=== PATIENT | male | born 1955 | race Hispanic/Latino ===

== ENCOUNTER → 2018-01-15 | Outpatient (CLI) | payer OTHER ==
[~2018-01-15] MED LIST: REGADENOSON 0.4 MG/5 ML PF SYG IVP SCH
== END | disposition home or self-care (01) ==
LOC: SHCH 09:32
PROVIDERS: ATTEND Internal Medicine Cardiovascular Disease
DX: Z01.810 Encounter for preprocedural cardiovascular examination (principal)
CPT/HCPCS: 78452; 93017; 96374; A9500 ×2; J2785

== ENCOUNTER 2018-02-14 06:39 | Observation (INO) | payer OTHER ==
[2018-02-08 11:26] VITALS: BP 152/59
[2018-02-08 11:30] LABS: BASOPHILS % (AUTO) 1.2 % (0.0-5.0); EOSINOPHILS % (AUTO) 7.3 % (0.0-8.0); HEMATOCRIT 35.9 % (42-54); MEAN CORPUSCULAR HEMOGLOBIN 31.5 pg (27.0-33.0); MEAN CORPUSCULAR HGB CONC 34.1 g/dL (32.0-36.0); MEAN CORPUSCULAR VOLUME 92.3 fL (79-99); MONOCYTES % (AUTO) 7.1 % (3.0-13.0); NEUTROPHILS % (AUTO) 53.4 % (40.0-77.0); PLATELET COUNT (AUTO) 346 K/uL (130-400); RED BLOOD CELL COUNT(AUTO) 3.89 MIL/uL (4.50-6.20); WHITE BLOOD COUNT (AUTO) 7.3 K/uL (4.8-10.8)
[2018-02-08 11:43] LABS: POTASSIUM 4.4 mmol/L (3.5-5.1)
[2018-02-08 11:49] LABS: INR 0.99 (0.85-1.15); PARTIAL THROMBOPLASTIN TIME 28.9 SEC (26.3-35.5); PROTHROMBIN TIME 10.4 SEC (9.6-11.6)
[2018-02-09] MEDS: CEFAZOLIN SODIUM 1 GM VIAL IVP SCH (12:15)
[2018-02-10] MEDS: CEFAZOLIN SODIUM 1 GM VIAL IVP SCH (12:15)
[2018-02-11] MEDS: CEFAZOLIN SODIUM 1 GM VIAL IVP SCH (12:15)
[~2018-02-14] VITALS: Ht 175.3 cm; Wt 124.3 kg
[2018-02-14] VITALS (23 sets, daily range): BP systolic 132–185; BP diastolic 52–80
[~2018-02-14 06:39] MED LIST changes: +AMLO10TA6 PO; +ATOR20TA65 PO; +CLON0.5T12 PO; +DICL2100G TP; +DOCU-282 PO; +EXEN2PEN SQ; +FENO145T37 PO; +FISH1CAP27 PO; +GABA-531 PO; +GEMF600T4 PO; +HYDR-4064 PO; +HYDR-4153 PO; +HYDR25TA PO; +INSLAN SQ; +LOSA100T20 PO; +METF-446 PO; +MULT-1258 PO; +PIOG30TA70 PO; -REGADENOSON 0.4 MG/5 ML PF SYG IVP SCH
[2018-02-14] MEDS ORDERED: TRANEXAMIC ACID 1000MG/10ML IV ONE (07:40)
[2018-02-14] MEDS ORDERED: LACTATED RINGERS 1000ML 1,000 ML IV ONE (08:01)
[2018-02-14] MEDS ORDERED: ROPIVACAINE 0.5% 5MG/ML 30ML IJ ONE (08:46)
[2018-02-14] MEDS ORDERED: DEXAMETHASONE SOD PHOSPHATE 10MG/ML 1ML VIAL ONE (08:51)
[2018-02-14] MEDS ORDERED: ONDANSETRON HCL 4 MG/2 ML VIAL ONE (08:51)
[2018-02-14] MEDS ORDERED: MIDAZOLAM HCL 1 MG/ML 2ML VIAL ONE (08:51)
[2018-02-14] MEDS ORDERED: LIDOCAINE HCL MPF 1% 5ML VIAL ONE (08:51)
[2018-02-14] MEDS ORDERED: PROPOFOL 10 MG/ML 20ML VIAL IV ONE (08:51)
[2018-02-14] MEDS ORDERED: LIDOCAINE PF 2% 5ML ABBOJECT ONE (08:51)
[2018-02-14] MEDS ORDERED: FENTANYL CITRATE PF 50 MCG/1 ML 5ML AMP IV ONE (08:52)
[2018-02-14] MEDS: CEFAZOLIN SODIUM 1 GM VIAL IVP SCH (10:15)
[2018-02-14] MEDS ORDERED: ROCURONIUM BROMIDE 10MG/1ML 5ML VL ONE (10:15)
[2018-02-14] MEDS ORDERED: VANCOMYCIN HCL 1 GM VIAL ONE (10:20)
[2018-02-14] MEDS ORDERED: FENTANYL CITRATE PF 50 MCG/1 ML 2ML VIAL ONE (11:43)
[2018-02-14] MEDS ORDERED: CALCIUM CARBONATE 500 MG TABLET PO PRN (12:15)
[2018-02-14] MEDS ORDERED: OXYCODONE HCL 5 MG TAB PO PRN (12:15)
[2018-02-14] MEDS ORDERED: ONDANSETRON HCL 4 MG/2 ML VIAL IVP PRN (12:15)
[2018-02-14] MEDS ORDERED: MEPERIDINE-PF 25 MG/ML SYG ONE (12:35)
[2018-02-14] MEDS ORDERED: MORPHINE SULFATE 4 MG/1ML SYG ONE (13:10)
[2018-02-14] MEDS: GABAPENTIN 300 MG CAPSULE PO SCH ×2 (14:19→21:05)
[2018-02-14] MEDS: HYDRALAZINE HCL 25 MG TABLET PO SCH ×2 (14:19→21:05)
[2018-02-14] MEDS: SODIUM CHLORIDE 0.9% 1000ML 1,000 ML IV SCH ×2 (14:19→23:03)
[2018-02-14] MEDS: ACETAMINOPHEN EXTRA STRENGTH 500 MG TABLET PO SCH ×2 (14:21→21:07)
[2018-02-14] MEDS: INSULIN HUMULIN R 100 UNIT/ML 3ML SQ SCH ×2 (16:30→21:00)
[2018-02-14] MEDS: CEFAZOLIN 3GM /D5W 100ML 100 ML IV SCH (18:35)
[2018-02-14] MEDS ORDERED: ATORVASTATIN CALCIUM 20 MG TABLET PO SCH (21:00)
[2018-02-14] MEDS ORDERED: LOSARTAN 100 MG TABLET PO SCH (21:00)
[2018-02-14] MEDS ORDERED: CLONAZEPAM 0.5 MG TABLET PO SCH (21:00)
[2018-02-14] MEDS: FAMOTIDINE 20MG TAB 20 MG TAB PO SCH (21:05)
[2018-02-14] MEDS: GEMFIBROZIL 600 MG TABLET PO SCH (21:06)
[2018-02-14] MEDS: METFORMIN HCL 500 MG TABLET PO SCH (21:07)
[2018-02-14] MEDS: OXYCODONE HCL 5 MG TAB PO PRN (21:11)
[2018-02-14] MEDS: INSULIN GLARGINE 100 UNITS/ML 10 ML VIAL SQ SCH (21:15)
[2018-02-14] MEDS: KETOROLAC TROMETHAMINE 15MG/ML IV PRN (22:59)
[2018-02-15] MEDS: CEFAZOLIN 3GM /D5W 100ML 100 ML IV SCH (00:25)
[2018-02-15 03:50] VITALS: BP 151/81
[2018-02-15 04:00] LABS: HEMATOCRIT 31.6 % (42-54); MEAN CORPUSCULAR HEMOGLOBIN 30.6 pg (27.0-33.0); MEAN CORPUSCULAR HGB CONC 33.2 g/dL (32.0-36.0); MEAN CORPUSCULAR VOLUME 92.1 fL (79-99); PLATELET COUNT (AUTO) 243 K/uL (130-400); RED BLOOD CELL COUNT(AUTO) 3.43 MIL/uL (4.50-6.20); RED CELL DISTRIBUTION WIDTH 12.9 % (11.0-15.5); WHITE BLOOD COUNT (AUTO) 12.6 K/uL (4.8-10.8)
[2018-02-15 04:19] LABS: CREATININE 1.1 mg/dL (0.5-1.5); POTASSIUM 3.6 mmol/L (3.5-5.1)
[2018-02-15] MEDS: ACETAMINOPHEN EXTRA STRENGTH 500 MG TABLET PO SCH ×2 (05:07→12:09)
[2018-02-15] MEDS: OXYCODONE HCL 5 MG TAB PO PRN ×3 (05:08→16:51)
[2018-02-15] MEDS: INSULIN HUMULIN R 100 UNIT/ML 3ML SQ SCH ×2 (07:30→12:11)
[2018-02-15 08:16] VITALS: BP 129/57
[2018-02-15] MEDS: INSULIN GLARGINE 100 UNITS/ML 10 ML VIAL SQ SCH (08:27)
[2018-02-15] MEDS: GABAPENTIN 300 MG CAPSULE PO SCH ×2 (08:40→14:50)
[2018-02-15] MEDS: FAMOTIDINE 20MG TAB 20 MG TAB PO SCH (08:41)
[2018-02-15] MEDS: METFORMIN HCL 500 MG TABLET PO SCH (08:41)
[2018-02-15] MEDS: HYDRALAZINE HCL 25 MG TABLET PO SCH ×2 (08:41→14:50)
[2018-02-15] MEDS: GEMFIBROZIL 600 MG TABLET PO SCH (08:42)
[2018-02-15] MEDS: KETOROLAC TROMETHAMINE 15MG/ML IV PRN (08:44)
[2018-02-15] MEDS ORDERED: AMLODIPINE BESYLATE 5 MG TAB PO SCH (09:00)
[2018-02-15] MEDS ORDERED: FENOFIBRATE NANOCRYSTALLIZED 145 MG TAB PO SCH (09:00)
[2018-02-15] MEDS ORDERED: PIOGLITAZONE HCL 30 MG TAB PO SCH (09:00)
[2018-02-15] MEDS ORDERED: POLYETHYLENE GLYCOL 3350 17 GM POWD.PACK PO SCH (09:00)
[2018-02-15] MEDS ORDERED: RIVAROXABAN 10 MG TABLET PO SCH (09:00)
[2018-02-15] MEDS ORDERED: HYDROCHLOROTHIAZIDE 25 MG TABLET PO SCH (09:00)
[2018-02-15 11:36] VITALS: BP 139/58
[2018-02-15] MEDS ORDERED: HYDROCODONE/ACETAMINOPHEN 5/325 MG TAB PO PRN (14:00)
[2018-02-17] MEDS ORDERED: BISACODYL 10 MG SUPP.RECT RC PRN (12:15)
[2018-02-21] MEDS ORDERED: Exenatide Microspheres (Bydureon Pen) 2 MG SQ SCH (09:00)
== END 2018-02-15 17:47 | disposition home or self-care (01) ==
LOC: DAH 06:39 → DAHIP 06:40 → EDSTATUS 10:30 → 4AH 13:29
PROVIDERS: ADMIT Orthopaedic Surgery; ATTEND Orthopaedic Surgery
DX: M17.11 Unilateral primary osteoarthritis, right knee (principal); E11.9 Type 2 diabetes mellitus without complications; I10 Essential (primary) hypertension; E78.5 Hyperlipidemia, unspecified; I25.10 Atherosclerotic heart disease of native coronary artery without angina pectoris; D72.829 Elevated white blood cell count, unspecified; Z79.01 Long term (current) use of anticoagulants; E66.9 Obesity, unspecified; Z79.4 Long term (current) use of insulin
CPT/HCPCS: 27447; 36415 ×3; 80048 ×2; 82948 ×6; 85025; 85027; 85610; 85730; 86850 ×2; 86900 ×2; 86901 ×2; 87641; 88305; 88311; 96365; 96366; 96372 ×2; 96375; 96376; 97116 ×3; 97161; 97530 ×2; A4248; A4510; A4649 ×4; A4930 ×2; C1713; C1776; G0168; G0378 ×35; G8978; G8979; G8980; G8981; G8982; G8983; J0690 ×2; J1100; J1815; J1885 ×2; J2001; J2175; J2250; J2270; J2405; J2704; J2795; J3010 ×2; J3370; J3490 ×3; J7030; J7120 ×2

== ENCOUNTER → 2024-06-02 | Outpatient (CLI) | payer OTHER ==
[~2024-06-02] MED LIST changes: +AMLO-258 PO; -AMLO10TA6 PO; -CLON0.5T12 PO; +CLON0.5T4 PO; +FENO145T26 PO; -FENO145T37 PO; -GEMF600T4 PO; +GEMF600T89 PO; -HYDR-4153 PO; +HYDR25TA67 PO; -LOSA100T20 PO; +LOSA100T59 PO
--- NOTE | 2024-06-02 14:33 | HMCSR ---
APPROVED REPORT Height: 5 ft 8in Weight: 242 lbs TEST INDICATIONS Z91.89 OTHER SPECIFIED PERSONAL RISK FACTORS The imaging protocol used to acquire images was Rest Tc-99m/stress Tc-99m 1 day Consent: The procedure was explained and understood by the patient. Informerd consent was witnessed Heriberto Jarquin RN First, low dose rest was performed then high dose stress. RESTING DATA: The resting ekg shows: NSR Rest SPECT myocardial perfusion imaging was performed in supine position 68 minutes following the int ravenous injection of 10.8 mCi of Tc-99 Sestamibi. Time of rest injection: 809 Date: 06/02/2024 Time of rest imagin Date: 06/02/2024 PHARMACOLOGIC STRESS: Pharmacologic stress test was performed by injecting regadenoson 0.4 mg IV push followed by the intra venous injection of 32.4 mCi of Tc-99 Sestamibi. Time of stress injection: 939 Date: 06/02/2024 Time of stress imagin Date: 06/02/2024 Heart Rate at time of stress injection: 72 bpm. Gated Stress SPECT was performed 95 minutes after stress injection. The images were gated to evaluate regional wall motion and calculate left ventricular ejection fracti on. STRESS DETAILS Reason for Termination: Infusion complete Stress Symptoms: Dyspnea Max HR Achieved: 86 bpm % of APMHR Achieved: 57 Max Blood Pressure: 136/76 mmHg Stress ECG: NSR Conclusion No ischemia Inferior infarct Dilated LV at rest and stress No increased lung uptake Normal LV wall motion LV ejection fraction 52% There is a 10-15% chance that myocardial ischemia is underestemated on this exam
[2024-06-02] MEDS: REGADENOSON 0.4 MG/5 ML PF SYG IVP ONE (15:49)
== END | disposition home or self-care (01) ==
LOC: SHCH 07:53
PROVIDERS: ATTEND Internal Medicine Cardiovascular Disease
DX: Z91.89 Other specified personal risk factors, not elsewhere classified (principal); R06.00 Dyspnea, unspecified; I51.7 Cardiomegaly; I25.10 Atherosclerotic heart disease of native coronary artery without angina pectoris
CPT/HCPCS: 78452; 93017; J2785; A9500 ×2